=== PATIENT | male | born 1955 | race Caucasian/White ===

== ENCOUNTER → 2020-06-11 | Outpatient (CLI) | payer MEDICARE ==
[~2020-06-11] MED LIST: IOPAMIDOL 370 MG/ML 200 ML INFUS..BTL INJ ONE; SODIUM CHLORIDE 0.9% 250ML 250 ML ONE
[2020-06-11 10:18] LABS: BLOOD UREA NITROGEN 12 mg/dL (7-26); BUN/CREATININE RATIO 13 (6-25); CREATININE, SERUM 0.93 mg/dL (0.72-1.25); EST GLOMERULAR FILTRATION RATE > 60 ML/MIN (60-)
--- NOTE | 2020-06-11 11:54 | Diagnostic Imaging Report ---
CT of the abdomen and pelvis. Hematuria protocol Comparison: . None Clinical History: Hematuria Technique: Helical CT scan of the abdomen and pelvis was performed. Intravenous contrast administration was utilized. Oral contrast administration was not utilized. Coronal and sagittal reconstructions were generated from the raw data. Multiple images were submitted for interpretation. This exam was performed according to our departmental dose-optimization program which includes automated exposure control, adjustment of the mA and/or kV according to patient size Discussion: Inferior chest: Minimal dependent atelectasis 5 mm nodular opacity in the left lower lobe subjacent to the major fissure. Liver: Unremarkable Spleen: Unremarkable Pancreas: Unremarkable Biliary tree and gallbladder: Unremarkable Adrenal glands: Unremarkable Kidneys and ureters: No calculi. No renal masses. No filling defects in the renal collecting system or the ureters. Vasculature: Unremarkable Lymph nodes: No lymphadenopathy Bowel: Unremarkable. Left and direct inguinal hernia containing sigmoid colon without obstruction. Pelvis: There is enlargement of the prostate gland especially the median lobe causing marked impression on the urinary bladder with likely bladder outlet obstruction. There is contrast fluid level in the urinary bladder on postcontrast images that suggests presence of debris in the urine. Seminal vesicles unremarkable. Pelvic wall unremarkable. Peritoneum: In addition to the left indirect inguinal hernia containing sigmoid colon there is a right indirect inguinal hernia containing fat. Otherwise unremarkable Perineal compartments: unremarkable. Fluid: No free fluid in the peritoneum Bones: No aggressive bony lesions Body wall: Bilateral hernias as described Impression: No abnormality of the kidneys are the collecting system and ureters bilaterally. No bladder mass. A large prostate with bladder outlet obstruction. A nodule in the left lower lobe of the lung. It could represent intrafissural lymph node. A full CT of the chest may be obtained for further evaluation. Signed by: Viktor Barbosa MD on 06/11/2020 11:51 AM
== END ==
LOC: CT 09:22
PROVIDERS: ATTEND Emergency Medicine
DX: R31.9 Hematuria, unspecified (principal)
CPT/HCPCS: 36415; 74178; 82565; 84520; J7050; Q9967